=== PATIENT | male | born 1950 | race Two or more races ===

== ENCOUNTER 2018-12-06 00:23 | Emergency (ER) | payer SELFPAY ==
[2018-12-06] MEDS ORDERED: DIPH,PERTUSS(ACELL),TET VAC/PF 0.5 ML IM-VACC ONE ×2 (00:47→01:00)
--- NOTE | 2018-12-06 00:54 | NUR ---
BREAK RN: PT RESTING IN ROOM. VS STABLE. WILL CONTINUE TO MONITOR WHILE PRIMARY RN IS ON BREAK
[2018-12-06 01:04] LABS: BASOPHILS # (AUTO) 0.05 x10^3/uL (0-0.1); BASOPHILS % (AUTO) 1 % (0-1); EOSINOPHILS # (AUTO) 0.02 x10^3/uL (0-0.4); EOSINOPHILS % (AUTO) 0 % (1-7); LYMPHOCYTES % (AUTO) 28 % (22-44); MD NO; MEAN CORPUSCULAR HEMOGLOBIN 30.8 pg (27.5-34.5); MEAN CORPUSCULAR HGB CONC 33.2 g/dL (33.2-36.2); MEAN CORPUSCULAR VOLUME 92.8 fL (81-97); MEAN PLATELET VOLUME 9.7 fL (7.4-10.4); MONOCYTES # (AUTO) 0.45 x10^3/uL (0.2-0.8); MONOCYTES % (AUTO) 5 % (2-9); NEUTROPHILS # (AUTO) 5.77 x10^3/uL (1.8-6.8); NEUTROPHILS % (AUTO) 66 % (42-75); PLATELET COUNT 268 x10^3/uL (130-400); RED BLOOD COUNT 4.86 x10^6/uL (4.38-5.82); RED CELL DISTRIBUTION WIDTH 12.4 % (9.4-14.8)
[2018-12-06 01:07] LABS: ALBUMIN 3.9 g/dL (3.4-5.0); ANION GAP 11 mmol/L (5-15); CALCIUM 8.6 mg/dL (8.5-10.1); CHLORIDE 102 mmol/L (98-107)
[2018-12-06 01:10] LABS: ALANINE AMINOTRANSFERASE 28 U/L (12-78); ALKALINE PHOSPHATASE 145 U/L (45-117); BILIRUBIN,TOTAL 0.5 mg/dL (0.2-1.0); CREATININE 1.24 mg/dL (0.7-1.3); TOTAL PROTEIN 7.4 g/dL (6.4-8.2)
--- NOTE | 2018-12-06 01:20 | NUR ---
REPORT JUDSON MORRISON
--- NOTE | 2018-12-06 02:36 | NUR ---
PT YELLING OUT INTO HALLWAY FOR HELP. PT STTED NECK C-COLLAR IS UNCOMFORTABLE. ERP OKAYED C-COLLAR TO BE REMOVED. PT NOW RESTING CALMLY IN BED. WILL CONTINUE TO MONITOR.
[2018-12-06 03:21] VITALS: BP 108/60
--- NOTE | 2018-12-06 03:31 | NUR ---
pt resting calmly in bed at this time with eyes closed. no stated needs. will continue to mtf
--- NOTE | 2018-12-06 04:33 | NUR ---
PT AMBULATING STEADILY IN HALLWAY TO BATHROOM. PT HAS DRESSED HIMSELF AND IS WANTING TO LEAVE. PT STATED HIS IS AT THE HOTEL WITH HIM AND CAN KEEP AN EYE ON HIM. PT GLASSES AND MONEY RETURNED TO HIM. NO OTHER BELONGINGS CAME WITH PT. PT GIVEN A TAXI VOUCHER FOR SAFE DC HOME.
== END 2018-12-06 04:43 | disposition home or self-care (01) ==
LOC: ED 04:30
DX: S02.2XXA Fracture of nasal bones, initial encounter for closed fracture (principal); S01.411A Laceration without foreign body of right cheek and temporomandibular area, initial encounter; S06.9X9A Unspecified intracranial injury with loss of consciousness of unspecified duration, initial encounter; F10.129 Alcohol abuse with intoxication, unspecified; W10.0XXA Fall (on)(from) escalator, initial encounter; Y93.89 Activity, other specified; Y92.59 Other trade areas as the place of occurrence of the external cause; Y99.8 Other external cause status
CPT/HCPCS: 36415; 70450; 70486; 72125; 80053; 80307; 85025; 90471; 90715; 99284